=== PATIENT | female | born 1955 | race American Indian/Alaskan Native ===

== ENCOUNTER 2017-04-04 22:12 | Emergency (ER) | payer BC ==
[2017-04-04 23:23] LABS: Hematocrit 37.5 % (30.3-42.9); Hemoglobin 12.6 gm/dl (10.1-14.3); Mean Corpuscular HGB Conc 34 % (30-34); Mean Corpuscular Hemoglobin 30 pg (28-32); Mean Corpuscular Volume 89 fl (79-97); Platelet Count 223 K/mm3 (140-440); Red Blood Count 4.22 M/mm3 (3.65-5.03); Red Cell Distribution Width 13.9 % (13.2-15.2); White Blood Count 8.7 K/mm3 (4.5-11.0)
[2017-04-04 23:34] LABS: Anion Gap 15 mmol/L; BUN/Creatinine Ratio 21.11; Blood Urea Nitrogen 19 mg/dL (7-17); Calcium 10.1 mg/dL (8.4-10.2); Carbon Dioxide 24 mmol/L (22-30); Chloride 106.2 mmol/L (98-107); Glucose 125 mg/dL (65-100); Sodium 141 mmol/L (137-145)
[2017-04-05] MEDS ORDERED: FLEXERIL PO ONE (02:30)
[2017-04-05 05:11] VITALS: BP 141/91
--- NOTE | 2017-04-05 05:12 | Emergency Department Report ---
ED Lower Extremity HPI - General Chief Complaint: Extremity Injury, Lower Stated Complaint: L LEG PAIN Source: patient Mode of arrival: Ambulatory Limitations: No Limitations - History of Present Illness Initial Comments: 61 year old female presents to ED with anterior thigh twitching and muscle spasms x3 days. patient is stable,neurologically intact and in no acute distress. MD Complaint: other (left leg muscle spasms) -: Gradual Injury: Thigh: Left Severity: mild Improves With: nothing Worsens With: nothing Associated Symptoms: ambulatory. denies: swelling, numbness, tingling - Related Data Previous Rx's Medication Instructions Recorded Last Taken Type Diazepam Tab [Valium] 5 mg PO TID PRN #12 tablet 05/12/16 Unknown Rx predniSONE [Deltasone] 20 mg PO BID #10 tab 05/12/16 Unknown Rx methOCARBAMOL [Robaxin TAB] 500 mg PO TID #21 tab 04/05/17 Unknown Rx Allergies Allergy/AdvReac Type Severity Reaction Status Date / Time amoxicillin Allergy SWELLING / Verified 05/12/16 15:07 [facility] ED Review of Systems ROS: Stated complaint: L LEG PAIN Other details as noted in HPI Constitutional: denies: chills, fever Eyes: denies: eye pain, eye discharge, vision change ENT: denies: ear pain, throat pain Respiratory: denies: cough, shortness of breath, wheezing Cardiovascular: denies: chest pain, palpitations Endocrine: no symptoms reported Gastrointestinal: denies: abdominal pain, nausea, diarrhea Genitourinary: denies: urgency, dysuria, discharge Musculoskeletal: denies: back pain, joint swelling, arthralgia Skin: denies: rash, lesions Neurological: denies: headache, weakness, paresthesias Psychiatric: denies: anxiety, depression Hematological/Lymphatic: denies: easy bleeding, easy bruising ED Past Medical Hx - Past Medical History Hx Hypertension: Yes Hx HIV: Yes - Surgical History Hx Cholecystectomy: Yes Hx Appendectomy: Yes - Social History Smoking Status: Never Smoker Substance Use Type: None - Medications Home Medications: Home Medications Medication Instructions Recorded Confirmed Last Taken Type Diazepam Tab [Valium] 5 mg PO TID PRN #12 tablet 05/12/16 Unknown Rx predniSONE [Deltasone] 20 mg PO BID #10 tab 05/12/16 Unknown Rx methOCARBAMOL [Robaxin TAB] 500 mg PO TID #21 tab 04/05/17 Unknown Rx ED Physical Exam - General Limitations: No Limitations General appearance: alert, in no apparent distress - Head Head exam: Present: atraumatic, normocephalic - Eye Eye exam: Present: normal appearance - ENT ENT exam: Present: mucous membranes moist - Neck Neck exam: Present: normal inspection - Respiratory Respiratory exam: Present: normal lung sounds bilaterally. Absent: respiratory distress, wheezes - Cardiovascular Cardiovascular Exam: Present: regular rate, normal rhythm. Absent: systolic murmur, diastolic murmur, rubs, gallop - GI/Abdominal GI/Abdominal exam: Present: soft, normal bowel sounds. Absent: distended, tenderness, guarding - Extremities Exam Extremities exam: Present: normal inspection, full ROM. Absent: tenderness, joint swelling - Back Exam Back exam: Present: normal inspection, full ROM. Absent: tenderness - Neurological Exam Neurological exam: Present: alert, oriented X3, normal gait - Psychiatric Psychiatric exam: Present: normal affect, normal mood - Skin Skin exam: Present: warm, dry, intact, normal color. Absent: rash ED Course Vital Signs 04/04/17 04/05/17 22:37 05:10 Temperature 98.0 F Pulse Rate 86 74 Respiratory 18 18 Rate Blood Pressure 159/90 Blood Pressure 141/91 [Left] O2 Sat by Pulse 100 100 Oximetry ED Lower Extremity MDM - Lab Data Result diagrams: 04/04/17 22:57 04/04/17 22:57 Labs 04/04/17 04/04/17 22:57 22:57 WBC 8.7 RBC 4.22 Hgb 12.6 Hct 37.5 MCV 89 MCH 30 MCHC 34 RDW 13.9 Plt Count 223 Sodium 141 Potassium 4.0 Chloride 106.2 Carbon Dioxide 24 Anion Gap 15 BUN 19 H Creatinine 0.9 Estimated GFR > 60 BUN/Creatinine Ratio 21.11 Glucose 125 H Calcium 10.1 Magnesium 2.00 - Medical Decision Making 61 year old female presents to ED with left thigh muscle spasms/twitching in anterior thigh. patient denies pain. patient is non tender on palpation to left leg. patient denies hx of blood clots. patient is stable, neurologically intact and in no acute distress. Critical care attestation.: If time is entered above; I have spent that time in minutes in the direct care of this critically ill patient, excluding procedure time. ED Disposition Clinical Impression: Muscle spasm of left lower extremity Disposition: DC- TO HOME OR SELFCARE Is pt being admited?: No Does the pt Need Aspirin: No Condition: Stable Instructions: Muscle Spasm (ED) Prescriptions: methOCARBAMOL [Robaxin TAB] 500 mg PO TID #21 tab Referrals: PRIMARY CARE, [Primary Care Provider] - 3-5 Days
== END 2017-04-05 05:57 | disposition home or self-care (01) ==
LOC: ED 22:12
DX: M79.605 Pain in left leg (principal); M62.838 Other muscle spasm; I10 Essential (primary) hypertension; Z88.1 Allergy status to other antibiotic agents
CPT/HCPCS: 36415; 80048; 83735; 85027; 99283